=== PATIENT | female | born 1975 | race Caucasian/White ===

== ENCOUNTER → 2019-09-27 | Outpatient (CLI) | payer BC | END | disposition home or self-care (01) | LOC: Rad HDHVI 11:22 | PROVIDERS: ATTEND Internal Medicine Cardiovascular Disease | DX: M79.89 Other specified soft tissue disorders (principal) | CPT/HCPCS: 71100; 73080 ==

== ENCOUNTER → 2021-04-28 | Emergency (ER) | payer BC ==
[~2021-04-28] VITALS: Ht 170.2 cm; Wt 106.6 kg
[~2021-04-28] MED LIST: REGENERON 1200mg/250ml NS 250 ML IV ONE
== END | disposition left against medical advice (07) ==
LOC: ER 15:29
DX: M79.10 Myalgia, unspecified site (principal); Z53.21 Procedure and treatment not carried out due to patient leaving prior to being seen by health care provider